=== PATIENT | male | born 1965 | race Caucasian/White ===

== ENCOUNTER → 2023-06-24 | Outpatient (CLI) | payer BC ==
[2023-06-24 16:15] LABS: Post Vasectomy Direct Exam Absent (Absent)
== END | disposition home or self-care (01) ==
LOC: LABWHC1 10:35
PROVIDERS: ATTEND Family Medicine
DX: Z98.52 Vasectomy status (principal)
CPT/HCPCS: 89321

== ENCOUNTER → 2023-08-16 | Outpatient (CLI) | payer BC ==
[2023-08-16 22:43] LABS: Microalbumin Creatinine Ratio <99 mg/g Cr (0-30); Urine Creatinine 12.1 mg/dL (39.0-259.0)
[2023-08-16 23:00] LABS: Post Vasectomy Direct Exam Present (Absent)
== END | disposition home or self-care (01) ==
LOC: LABWHC1 14:20
PROVIDERS: ATTEND Family Medicine
DX: Z30.8 Encounter for other contraceptive management (principal)
CPT/HCPCS: 36415; 82043; 82570; 84443; 89321

== ENCOUNTER → 2023-08-16 | Outpatient (CLI) | payer BC | END | disposition home or self-care (01) | LOC: LABWHC1 14:24 | PROVIDERS: ATTEND Internal Medicine | DX: Z53.9 Procedure and treatment not carried out, unspecified reason (principal) ==

== ENCOUNTER → 2024-02-28 | Outpatient (CLI) | payer BC | END | disposition home or self-care (01) | LOC: LABPRL 12:34 | PROVIDERS: ATTEND Family Medicine | DX: N46.9 Male infertility, unspecified (principal) | CPT/HCPCS: 89321 ==

== ENCOUNTER → 2024-05-11 | Outpatient (CLI) | payer BC ==
[2024-05-11 11:09] LABS: BUN/Creat Ratio 28.43 Ratio (12.00-20.00); Blood Urea Nitrogen 19.9 mg/dL (9.0-27.0); Calcium 9.2 mg/dL (8.7-10.3); Carbon Dioxide 25.6 mmol/L (21.6-31.8); Chloride 103 mmol/L (96-109); Glucose 82 mg/dL (70-110); Potassium 4.1 mmol/L (3.5-5.5); Sodium 139 mmol/L (135-145)
== END | disposition home or self-care (01) ==
LOC: LABWHC1 07:18
PROVIDERS: ATTEND Physician Assistant Medical
CPT/HCPCS: 36415; 80048; 84443